=== PATIENT | male | born 1975 | race Caucasian/White ===

== ENCOUNTER 2021-05-18 18:36 | Emergency (ER) | payer OTHER, SELFPAY ==
--- NOTE | 2021-05-18 19:03 | DI.RAD.S_ITS ---
PROCEDURE: XR WRIST RT MIN 3V INDICATIONS: fall TECHNIQUE: 4 views of the wrist were acquired. COMPARISON: None. FINDINGS: Bones: Acute minimally displaced fractures involving both radial and ulnar styloids are seen. No other fracture or dislocation. No suspicious bony lesions. Scaphoid view: Scaphoid is grossly intact. Soft tissues: No suspicious soft tissue calcifications. IMPRESSION: Minimally displaced fractures involving both radial and ulnar styloids. Dictated by: Jeramie Santos M.D. on 05/18/2021 at 19:30 Approved by: Jeramie Santos M.D. on 05/18/2021 at 19:30
[2021-05-18 19:04] VITALS: BP 133/79; PULSE 88; RESP 17; TEMP 37.2; O2SAT 97; BMI 26.4
--- NOTE | 2021-05-18 22:43 | ED.UPPEXIN ---
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 He has some swelling and now bruising on the volar surface of the wrist. He is neurovascularly intact. He describes no other injuries fall. He was seen initially on [facility] and they did have a capacity to do x-rays. He had a single oxycodone and that has controlled his pain for the last number of hours. He describes no loss of consciousness, no recent fevers, cough, abdominal pain, vomiting, diarrhea, palpitations,, chest pain. He was able to easily stand up after the fall and is still not noticing any additional orthopedic complaints hours after the fall. Related Data Previous Rx's Medication Instructions Recorded oxycodone 5 mg tablet 5 mg PO TID PRN #6 tab 05/18/21 Allergies Allergy/AdvReac Type Severity Reaction Status Date / Time No Known Drug Allergies Allergy Unverified 05/18/21 14:42 Review of Systems Review of Systems Narrative: Remainder of complete review of systems is otherwise unremarkable except for that included in the HPI. Patient History Social History Smoking Status: Former smoker Smoking Status: Former smoker alcohol intake frequency: a few times a month Substance Use Type: marijuana Exam Initial Vital Signs Initial Vital Signs: Vital Signs Temperature 99 F 05/18/21 19:04 Pulse Rate 88 05/18/21 19:04 Respiratory Rate 17 05/18/21 19:04 Blood Pressure 133/79 05/18/21 19:04 Pulse Oximetry 97 05/18/21 19:04 General: Alert appropriate in no acute distress Respiratory: Able to speak in full sentences, no obvious respiratory distress Skin: No obvious rashes, warm and dry Neurologic: Grossly intact no obvious asymmetries or abnormalities Psych: appropriate insight and affect, cooperative Extremity: Right hand with some swelling moderate swelling to the right wrist limited range of motion neurovascularly intact ecchymosis developing over the volar side of the wrist. No injury to the elbow or shoulder. Course Orders Ordered: ED Orders 05/18/21 19:03 XR wrist RT min 3V Stat Vital Signs Vital signs: Vital Signs - 8 hr 05/18/21 19:04 Temperature 99 F Pulse Rate 88 Respiratory Rate 17 Blood Pressure 133/79 Pulse Oximetry 97 MDM - Extremity Injury (Upper) Imaging Data XR wrist: Radiologist's Impression: FINDINGS:? ? Bones:? Acute minimally displaced fractures involving both radial and ulnar styloids are seen.? No other fracture or dislocation.? No suspicious bony lesions.? ? Scaphoid view:? Scaphoid is grossly intact. ? Soft tissues:? No suspicious soft tissue calcifications.? ? IMPRESSION:? Minimally displaced fractures involving both radial and ulnar styloids. ? ? Dictated by: Jeramie Santos M.D. on 05/18/2021 at 19:30? ?? [facility] Narrative Medical decision making narrative: 46-year-old right-handed gentleman fell landing on his right wrist with minimally displaced fractures of both the ulnar and radial styloid. He is placed in volar splint. Will have him follow-up with Orthopedic surgery for definitive treatment. Brief discussion with Dr. Toledo this evening. She recommended splinting and follow-up in approximately a week after the swelling has had a chance to diminish. He has a small prescription of Percocet available to him and does not believe he needs any additional. When over anticipated course of symptoms in the next couple of days as well as length and type of treatment. Questions are answered and he is safe for home discharge Discharge Plan Departure Patient Disposition: Home Clinical Impression: Fracture of wrist Qualifiers: Encounter type: initial encounter Fracture type: closed Laterality: right Qualified Code(s): S62.101A - Fracture of unspecified carpal bone, right wrist, initial encounter for closed fracture Instructions: DI for Wrist Fracture Activity Restrictions/Additional Instructions: Thank you for coming in today. I am sorry today turned out to be such a long ordeal for you You did break your wrist, you very likely will heal nicely and not need any surgical intervention. Typically with wrist fracture such as this you are in a cast for 6 weeks. Using 400 mg of ibuprofen (2 jwyk-qwu-jqaxzxa pills) and 1 Tylenol every 6 hours can be very helpful in controlling pain. For severe pain, using 400 mg of ibuprofen and 1 of the pain pills given to you from the [facility] this afternoon. You need to follow-up with [facility], Dr Trisha Toledo next week for definitive treatment of the fracture. Phone number is [phone] If you have worsening symptoms, pain that continues to increase her is not able to be controlled with pain medications please return to the ER Prescriptions: No Action oxycodone 5 mg tablet 5 mg PO TID PRN (Reason: pain) Qty: 6 0RF Referrals: Lemuel Grimes MD [Primary Care Provider] -
[2021-05-18 23:24] VITALS: BP 124/90; PULSE 97; RESP 17; O2SAT 98
== END 2021-05-18 23:26 | disposition home or self-care (01) ==
PROVIDERS: Emergency Provider Emergency Medicine; Family Provider Nurse Practitioner; PCP Family Medicine
DX: S52.511A Displaced fracture of right radial styloid process, initial encounter for closed fracture (principal); S52.611A Displaced fracture of right ulna styloid process, initial encounter for closed fracture; W13.2XXA Fall from, out of or through roof, initial encounter; Y99.0 Civilian activity done for income or pay
CPT/HCPCS: 73110; 99281; 99283

== ENCOUNTER 2021-05-25 05:52 | Day surgery (SDC) | payer OTHER, SELFPAY ==
[2021-05-25] VITALS (7 sets, daily range): BP systolic 133–153; BP diastolic 83–97; PULSE 81–97; RESP 12–16; TEMP 36.7–36.9; O2SAT 93–98; BMI 27.1
[2021-05-25 06:55] LABS: COVID19 -Nasal RAPID Negative (Negative)
[2021-05-25] MEDS: ACETAMINOPHEN 325 MG TABLET 975 MG PO (07:05)
[2021-05-25] MEDS: SCOPOLAMINE 1 PATCH TOP (07:06)
[2021-05-25] MEDS: GABAPENTIN 300 MG CAPSULE PO (07:06)
--- NOTE | 2021-05-25 07:25 | SUR.OPER ---
Supine on padded OR bed, head on pillow, left arm secured on padded arm boards at <90 degrees abduction, right arm on the handtable, legs uncrossed, safety belt at thigh, tape over blanket over lower legs.
--- NOTE | 2021-05-25 07:32 | PM.PREOP ---
Pre-operative Note COVID-19 Criteria for continued procedure: Possibility delay results in more complex future surgery or treatment, Increased loss of function, Continuing or worsening of significant or severe pain, Deterioration of the patient's condition or overall health, Delay expected to result in less-positive ultimate med/surg outcome and Non-surgical alternatives not available or appropriate per current SOC Interval Note History & Physical reviewed/Exam performed by Physician: Yes Changes to H&P: No
--- NOTE | 2021-05-25 07:53 | SUR.PREOP ---
Block start time [0737] . Monitoring initiated and maintained throughout procedure. Oxygen and medications available per anesthesiologist instructions. time out by dr. gonzalez at 0741. injection time 0743 . Patient remained stable throughout procedure, no adverse reactions noted. Block end time 0745. see flow sheet for vs. ].
--- NOTE | 2021-05-25 07:59 | PM.PROC.1 ---
Procedures Date/Time Date of procedure: 05/25/21 Time of procedure: 07:43 Nerve Block Time out performed: Yes Local anesthetic used: bupivacaine 0.5% Location of anesthetic used: RIGHT Nerve blocks: brachial plexus (Axillary) Procedure successful: Yes Patient tolerated procedure: well and no complications Complications: none Additional comments: Axillary nerve block performed for post-op pain control at surgeon request. Patient was positioned with IV, O2, monitors and rescue meds available. Prepped and timeout performed. Target identified with continuous ultrasound guidance. 30mL of bupivicaine 0.5% was injected perineurally with intermittent aspiration and injection. No blood, no paresthesias, no acute complications. Ultrasound pic attained.
[2021-05-25] MEDS: CEFAZOLIN 2 GM/20 ML SYRINGE IV (08:00)
[2021-05-25] MEDS: BUPIVACAINE 0.5% W/ EPI (PF) 30 ML VIAL INJ (09:57)
--- NOTE | 2021-05-25 10:15 | SUR.PHASEI ---
OK for patient to take taxi to the [facility] per Dr Garg. Patient's will pick him up at the [facility] terminal on [place].
--- NOTE | 2021-05-25 10:28 | P.OP_ITS ---
Operative Date/Time/Diagnoses Date of procedure: 05/25/21 Time of procedure: 10:28 Pre-op diagnosis: Right perilunate dislocation with right radius and ulna fracture Post-op diagnosis: same Procedure & Clinicians Procedure: Open reduction of a volar perilunate dislocation, carpal tunnel release, repair of the scapholunate ligament, repair of the lunate triquetral ligament close reduction without manipulation radial styloid fracture, closed reduction without manipulation of the ulnar styloid fracture Same procedure as scheduled: Yes Indications: Right perilunate dislocation Surgeon: Dayron Garg Click Yes if Unassisted: Yes Anesthesia Type: General and Peripheral nerve block Operative Notes Findings: Dislocation of the lunate volarly into the carpal tunnel. Avulsion Fracture fragment involving the lunate as well as the triquetrum. No sign of any scaphoid fracture. Complete rupture of the dorsal and volar ligaments of the scapholunate as well as the lunate triquetrum. Hematoma and swelling in the carpal tunnel. No sign of any tendon injury. No sign of any external damage to the median nerve or ulnar nerve. Closure Type: primary Applied: implant(s) (Three Arthrex anchors as well as labral tape, 3x0.54 K- wires.) Estimated Blood Loss (mL): 10 Tourniquet time (min): 110 Procedure in detail: On date of service, patient was met in the holding area where his operative site was signed and witnessed by the OR staff. The surgery is once again discussed with the patient in remaining questions or concerns he had were answered fully. Patient was taken back to the operating theater and placed on the operating table in a supine position. Great care was taken to ensure that all bony prominences were appropriately padded. A well-padded tourniquet was placed up along the upper extremity. Time-out was performed verifying patient's name, procedure, and operative site. The limb was prepped and draped in the normal sterile fashion. An Esmarch was used to exsanguinate the limb the tourniquet was turned up to 250 mm of mercury. We started with a extensile carpal tunnel incision. The incision was extended proximally across the wrist. Fifteen blade was used to incise the skin and fascial tissue. Electrocautery used to achieve hemostasis. Sharp dissection was continued until the carpal ligament was visualized. Curved hemostat was placed underneath the carpal ligament and the carpal ligament was excised performing a decompression of the carpal tunnel. There was quite a bit a hematoma in the carpal tunnel. This was irrigated. The flexor tendon and the median nerve were retracted radially. This gave us good visualization of the floor of the carpal tunnel. The lunate was sitting in the carpal tunnel most likely through the space of Poier[place]. There was a small avulsion fragment associated with the lunate but the majority of the lunate was free of any fracture. Next, reduction of the lunate was performed. We were able to push the lunate back into the radial carpal joint reducing it on to the radius and the capitate. At this point, moist Ray-Rocío was placed into the volar wound and we turned our attention to the radial aspect of the wrist. Longitudinal incision was made. The incision was ulnar to the Joel's tubercle. It was centered over the radiocarpal joint. Fifteen blade was used to incise through skin and fascial tissue. Sharp dissection was continued with a 15 blade until the extensor mechanism was identified. Branches of the superficial radial nerve were identified and protected as well as branches coming off ulnarly. The 2nd, 3rd, and 4th extensor compartments were opened. T his allowed us to retract the extensor tendons. There was also signs of hematoma radially which was irrigated. Next, the radiocarpal joint was opened preserving the carpal ligaments. There was some damage to the extrinsic ligament from the dislocation. There was a complete rupture to the scapholunate ligament as well as the lunate triquetral ligament. But no sign of any radiocarpal arthritic process or obvious articular damage. Patient had a small fracture fragment involving the tip of the radial styloid. K-wire was placed in to the scaphoid and 1 into the lunate and the scapholunate interval was reduced. There was quite a bit of flexion of the scaphoid which was reduced as well as extension of the lunate. These 2 K-wires were then held together to close down any diastasis. Another 2 K-wire was placed between the scaphoid and the lunate to help maintain reduction. Next, 3 guidewires were placed 1 in the lunate and 1 in the scaphoid by the scapholunate interval and then 1 in the triquetrum. C-arm used to verify reduction of the scapholunate interval as well as guidewire positioning. Once we were satisfied with the positioning cannulated drill was used to drill over the 3 guidewires. The bony hole tunnels were then copiously irrigated removing any remaining tissue. suture tape was tenodesed into the 1st hole in the scaphoid. Then under tension this was then placed into the 2nd hole into the lunate going across the scapholunate interval providing solid repair of the scapholunate interval. Next the suture material was placed between the lunate and triquetrum helping to reduce the interval as well as repair the dorsal ligament. C-arm was brought in to verify maintenance of reduction. Another K- wire was placed between the triquetrum and the lunate. 4-0 Ethibond was used to do a direct repair of the scapholunate ligament. So we had the direct repair as well as the anchor with suture material to reinforce the scapholunate ligament. On the dorsal aspect just had the FiberTape to address the dorsal aspect of the lunate triquetral ligament. We then turned our attention back volarly. We were able to do a direct repair of the volar lunate triquetral ligament. There was good healthy ligament tissue still available. A 2-0 Ethibond was used to repair the scapholunate ligament volarly and this provided a aguirre repair to the volar aspect. Next the wound was irrigated and then closed in a layered fashion volarly. We then turned our attention back to the dorsal wound. The dorsal aspect was irrigated and then final C-arm views were obtained veri fying pin position as well as the reduction of the scapholunate as well as lunate triquetrum. Were able to also verify that we corrected any excess flexion or extension of the carpal bones. Once we were satisfied with the repair and overall reduction, the wound was copiously irrigated and then closed in a layered fashion. 2-0 Ethibond was used to repair the dorsal capsule repairing the ligament this spur splitting approach. 3-0 Vicryl was then used to repair the extensor mechanism over the 2nd, 3rd, and 4th extensor compartments. Rest of the wound was closed in layered fashion. Patient's hand and arm was cleaned dried and dressed. Patient was placed into a splint and taken to the PACU in stable condition. Complications: none Post-operative Condition: stable Disposition: PACU Plan for aftercare: Patient will be discharged home. Patient only be immobilized for 6 weeks. At 2 weeks patient can come out of his splint to be placed into a short-arm cast. After 6 weeks patient will go into a removable brace. At 6 weeks patient will begin hand therapy to work on range of motion. K-wires will be removed at the 6 week follow-up.
--- NOTE | 2021-05-25 10:54 | SUR.PHASEII ---
patient [place] [address] to [facility].
--- NOTE | 2021-05-25 10:55 | SUR.PHASEII ---
Sling placed after getting dressed.
== END 2021-05-25 10:56 | disposition home or self-care (01) ==
PROVIDERS: Family Provider Nurse Practitioner; PCP Physician Assistant; Referring Provider Orthopaedic Surgery; Visit Provider Orthopaedic Surgery
PROC: (CPT 25695; principal; 2021-05-25 07:45)
DX: S63.094A Other dislocation of right wrist and hand, initial encounter (principal); W19.XXXA Unspecified fall, initial encounter; Z20.822 Contact with and (suspected) exposure to COVID-19
CPT/HCPCS: 25695; 25320; 64450; 87635; C1713; J0690; J1100; J1170; J1885; J2250; J2405; J2704

== ENCOUNTER → 2022-02-15 10:30 | Outpatient (CLI) | payer OTHER, SELFPAY ==
[2022-02-15 19:56] LABS: Alanine Aminotransferase 22 IU/L (<50); Albumin 4.6 g/dL (3.5-5.0); Albumin Globulin Ratio 1.5 (1.0-2.8); Alkaline Phosphatase 51 U/L (38-126); Aspartate Aminotransferase 21 IU/L (17-59); BUN Creatinine Ratio 14.1 (6-22); Blood Urea Nitrogen 13 mg/dL (9-20); Calcium 9.3 mg/dL (8.4-10.2); Carbon Dioxide 29 mmol/L (22-32); Chloride 101 mmol/L (98-107); Cholesterol 224 mg/dL (140-199); Estimated Glomerular Filt Rate > 60 mL/min (>60); Globulin 3.1 g/dL (1.7-4.1); Glucose 96 mg/dL (70-100); HDL Cholesterol 59 mg/dL (40-60); HEMOLYSIS < 15 (0-50); LDL Cholesterol Calculated 146 mg/dL (<100); Potassium 4.3 mmol/L (3.4-5.1); Sodium 139 mmol/L (137-145); Total Protein 7.7 g/dL (6.3-8.2); Triglycerides 94 mg/dL (35-150)
[2022-02-15 19:58] LABS: Add Manual Diff / Slide Review NO; Basophils Absolute Auto 100 /uL (0-100); Basophils Percent Auto 0.7 % (0-2); Eosinophils Absolute Auto 200 /uL (0-450); Eosinophils Percent Auto 1.9 % (2-4); Hematocrit 43.1 % (41-53); Hemoglobin 15.1 g/dL (13.5-17.5); Lymphocytes Absolute Auto 2000 /uL (1100-4500); Lymphocytes Percent Auto 25.8 % (25-40); Mean Corpuscular HGB Conc 35.1 % (30-36); Mean Corpuscular Hemoglobin 29.7 PG (26-34); Mean Corpuscular Volume 84.6 fL (80-100); Monocytes Absolute Auto 800 /uL (0-900); Monocytes Percent Auto 9.5 % (3-14); Neutrophils Absolute Auto 4900 /uL (1500-7000); Neutrophils Percent Auto 62.1 % (50-75); Platelet Count 195 X10^3/uL (150-400); Red Blood Cell Count 5.09 X10^6/uL (4.5-5.9); Red Cell Distribution Width 13.7 % (11.6-14.8); White Blood Cell Count 7.9 X10^3/uL (4.5-11.0)
[2022-02-15 20:26] LABS: Prostate Specific Antigen 1.83 ng/mL (0.10-4.00)
== END ==
PROVIDERS: PCP Physician Assistant; Visit Provider Physician Assistant
DX: Z12.5 Encounter for screening for malignant neoplasm of prostate (principal); Z13.220 Encounter for screening for lipoid disorders; R35.1 Nocturia
CPT/HCPCS: 80053; 80061; 84153; 85025

== ENCOUNTER → 2022-04-23 10:10 | Outpatient (CLI) | payer OTHER, SELFPAY ==
[2022-04-23 21:45] LABS: COVID19 - ORCAS (NP or Nasal) Negative (Negative)
== END ==
PROVIDERS: Family Medicine; PCP Physician Assistant; Visit Provider Surgery
DX: Z20.822 Contact with and (suspected) exposure to COVID-19 (principal)
CPT/HCPCS: U0003

== ENCOUNTER 2022-04-24 13:35 | Day surgery (SDC) | payer OTHER, SELFPAY ==
[2022-04-24 14:07] VITALS: BMI 25.0
[2022-04-24 14:10] VITALS: BP 124/77; PULSE 69; RESP 18; TEMP 36.6; O2SAT 99
[2022-04-24] MEDS: LACTATED RINGERS 1,000 ML 42 ML IV (14:23)
--- NOTE | 2022-04-24 15:38 | P.HP_ITS ---
History of Present Illness History of Present Illness Date Patient Seen: 04/24/22 Time Patient Seen: 15:38 Chief complaint: SDC Narrative: The patient presents for colorectal screening. They have never had any previous examination for such. Family history of colon cancer in mother. On further history denies any recent gastrointestinal symptoms. No nausea, vomiting, abdominal pain, loss of appetite, unexplained weight loss, change in bowel habits, or blood per rectum. Patient History Family & Social History Social History: household members family Tobacco & Substance use: Smoking Status Former smoker alcohol intake current alcohol intake frequency a few times a month Substance Use Type marijuana Meds Home Medications and Allergies Home Medications Medication Instructions Recorded Confirmed Type sodium,potassium,mag sulfates 17.5 See Rx Instructions PO .COMPLEX 04/12/22 04/24/22 Rx gram-3.13 gram-1.6 gram oral soln #354 mL (Suprep Bowel Prep Kit) Allergies Allergy/AdvReac Type Severity Reaction Status Date / Time No Known Drug Allergies Allergy Verified 04/24/22 14:06 Exam Vital Signs (past 8 hours): - 04/24/22 14:10 Temperature 97.8 F Pulse Rate 69 Respiratory Rate 18 Blood Pressure 124/77 Pulse Oximetry 99 Oxygen Delivery Method Room Air Oxygen Delivery Method Room Air Narrative Exam Narrative: General adult male alert oriented no acute distress Assessment & Plan Assessment & Plan narrative: The patient requires colorectal screening and colonoscopy is recommended. Technical details were discussed. Risks, benefits, alternatives explained. Risks including but not limited to myocardial infarction, aspiration, bleeding, pain, missed lesion, incomplete examination, need for further radiographic studies, colonic perforation, and need for major abdominal surgery were discussed. All questions were answered to their satisfaction, and they are in agreement with this plan. Time Spent With Patient Critical Care time: I spent a total of [] minutes of critical care time on this patient's care toda y; this time is exclusive of procedural time.
--- NOTE | 2022-04-24 15:39 | PM.OP.COLON ---
Operative Date/Time/Diagnoses Date of procedure: 04/24/22 Time of procedure: 15:39 Pre-op diagnosis: Colorectal screening Post-op diagnosis: same Procedure & Clinicians Study performed: Colonoscopy Same procedure as scheduled: Yes Indications: Colorectal screening Surgeon: Ta Sánchez Procedure Notes Procedure in detail: The history and physical was performed/updated and the patient is ASA class is 1. The procedure was discussed in detail with the patient. Potential risks complications including infection, bleeding, missed diagnosis, perforation, need for surgery, and were explained. Their questions were answered and informed consent was obtained. Patient was brought to the procedure room and placed standard monitoring equipment. The patient's vital signs were monitored continuously throughout the entire procedure. Prior to starting time-out was performed. The patient was placed in the left lateral recumbent position. Procedural sedation was administered by anesthesia. Examination began with a thorough inspection of the perianal area there was no evidence of fissures, fistulae, external hemorrhoids or cutaneous malignancy. The colonoscopy scope was then placed into the anal canal and was advanced to the cecum, which was identified by the ileocecal valve, the appendiceal orifice and the confluence of the taenia. The scope was then slowly withdrawn examining colon thoroughly in all directions, irrigating it of any residual stool. FINDINGS 1. No masses polyps or inflammation 2. Sigmoid extensive diverticulosis The patient tolerated the procedure well. They will be discharged once criteria are met. The prep was of good/excellent quality. The withdrawl time was 6 minutes. Impression: Normal colonoscopy Post-procedure Recommendations: Colonoscopy in 10 years and High fiber diet Disposition: same day surgery
[2022-04-24 16:09] VITALS: BP 117/71; PULSE 77; RESP 12; TEMP 36.2; O2SAT 98
[2022-04-24 16:15] VITALS: BP 105/77; PULSE 61; RESP 16; TEMP 36.2; O2SAT 99
[2022-04-24 16:20] VITALS: BP 117/79; PULSE 68; RESP 18; TEMP 36.3; O2SAT 100
[2022-04-24 16:35] VITALS: BP 117/68; PULSE 68; RESP 18; O2SAT 99
--- NOTE | 2022-04-24 16:44 | SUR.PHASEII ---
1644: Pt A&Ox4, denies any distress, abd soft, and ready to discharge home. Discharge instructions reviewed with pt and time allowed for questions. IV DC'd intact, pt left unit with all personal belongings and written instructions. Friend to transport pt home.
== END 2022-04-24 16:44 | disposition home or self-care (01) ==
PROVIDERS: PCP Physician Assistant; Referring Provider Surgery; Visit Provider Surgery
PROC: 0DJD8ZZ Inspection of Lower Intestinal Tract, Via Natural or Artificial Opening Endoscopic (ICD-10-PCS; CPT 45378; principal; 2022-04-24 14:45)
DX: Z12.11 Encounter for screening for malignant neoplasm of colon (principal); K57.30 Diverticulosis of large intestine without perforation or abscess without bleeding
CPT/HCPCS: 45378; C9803; J2704

== ENCOUNTER 2023-03-01 10:42 | Emergency (ER) | payer OTHER, SELFPAY ==
[2023-03-01 10:52] VITALS: BP 153/90; PULSE 85; RESP 14; TEMP 36.3; O2SAT 99; BMI 23.6
--- NOTE | 2023-03-01 11:23 | DI.RAD.S_ITS ---
PROCEDURE: XR CERVICAL SPINE 2V OR 3V INDICATIONS: neck pain, R>L, worse around C7 TECHNIQUE: 3 view(s) of the cervical spine were acquired. COMPARISON: None. FINDINGS: Bones: No fractures or dislocations to the T1 level. The lateral masses of C1 appear intact on the odontoid view. No suspicious bony lesions. There is trace anterolisthesis of C4 on C5. Moderate disc space narrowing at C5-6, C6-7. Soft tissues: No prevertebral soft tissue swelling. IMPRESSION: Degenerative changes most severe at C5-6, C6-7. No visualized acute fracture or dislocation. However, if clinical concern and/or pain persist, short interval imaging followup in 7-10 days is recommended, as occult injury cannot be definitively excluded. Dictated by: Tootie Ang M.D. on 03/01/2023 at 12:53 Approved by: Tootie Ang M.D. on 03/01/2023 at 12:54
--- NOTE | 2023-03-01 11:38 | ED.PSYCH ---
HPI - Psych <Meron Lynn PA-C - Last Filed: 03/01/23 14:35> General Chief Complaint: Psychiatric Symptoms Stated Complaint: neck pain/ anxiety/panic attack/ SI Time Seen by Provider: 03/01/23 11:00 Source: patient Mode of arrival: Ambulatory History of Present Illness HPI Narrative: Patient is a 39-year-old male who presents with concerns for depression and panic attack. He reports a past history of chronic neck pain after a workplace injury for which he has primarily used marijuana to manage the pain. He also has a history of drinking approximately 4 beers daily. He stopped using alcohol or marijuana 33 days ago. His partner and mother of his child moved out of his home 2 weeks ago and into the house next door which is on by family member. They are currently both caring for the child but do not have any formal agreement in place. He is having considerable symptoms of depression and anxiety. He is having difficulty with sleeping;I can not turn off my brain. This morning he awoke and had a panic attack. He felt like he could not breathe and he had chest pressure. He took a muscle relaxer that he has been prescribed for his neck pain in order to try and relax. In the past, he took benzodiazepines for anxiety and went through significant withdrawal after discontinuing these. Around the same time, he called the suicide hotline because he was feeling suicidal but did not have a plan. He presents to the ED today because he feels like I can not do this again tomorrow. He reports having to mental health counselors, both available over telehealth. He has an appointment later today with 1 of them. He does not have a psychiatrist. He is not currently on any psychoactive medications. He says he previously address this with his primary care Bambi Wade PA-C who stated that he needed to be clean and sober prior to starting any medications. Related Data Previous Rx's Medication Instructions Recorded cyclobenzaprine 10 mg tablet 10 mg PO BEDTIME painful muscle 02/25/23 spasms #20 tabs escitalopram oxalate 20 mg tablet 20 mg PO DAILY #30 tabs 03/01/23 trazodone 50 mg tablet 50 mg PO BEDTIME PRN insomnia #10 03/01/23 tabs Allergies Allergy/AdvReac Type Severity Reaction Status Date / Time No Known Drug Allergies Allergy Verified 03/01/23 10:57 Review of Systems <Meron Lynn PA-C - Last Filed: 03/01/23 14:35> Review of Systems ROS Unobtainable: All systems reviewed & are unremarkable except as noted in HPI and below Patient History <Meron Lynn PA-C - Last Filed: 03/01/23 14:35> Social History household members: family Smoking Status: Former smoker alcohol intake: current Smoking Status: Former smoker alcohol intake frequency: other Substance Use Type: former substance user Exam <Meron Lynn PA-C - Last Filed: 03/01/23 14:35> Narrative Exam Narrative: GENERAL: 47 year old patient appears stated age. Well-developed patient, appears fatigued, anxious. Patient has good insight into his current situation. Patient is able to identify stressors as well as supports. NEURO: AOx3. HEAD: Atraumatic. Normocephalic. EYES: Pupils equal round and reactive. Extraocular motions intact. No scleral icterus. No injection or drainage. ENT: Nose without bleeding or purulent drainage. Airway patent. RESPIRATORY: No distress or increased work of breathing EXTREMITIES: No edema or joint tenderness. SPINE: Focal tenderness over the base of the right neck around C7. No midline tenderness, deformity or step-offs. SKIN: No rash or erythema of visible areas Initial Vital Signs Initial Vital Signs: Vital Signs Temperature 97.4 F L 03/01/23 10:52 Pulse Rate 85 03/01/23 10:52 Respiratory Rate 14 03/01/23 10:52 Blood Pressure 153/90 H 03/01/23 10:52 Pulse Oximetry 99 03/01/23 10:52 Oxygen Delivery Method Room Air 03/01/23 10:52 <Lemuel Lindsey DO - Last Filed: 03/01/23 15:00> Initial Vital Signs Initial Vital Signs: Vital Signs Temperature 97.4 F L 03/01/23 10:52 Pulse Rate 85 03/01/23 10:52 Respiratory Rate 14 03/01/23 10:52 Blood Pressure 153/90 H 03/01/23 10:52 Pulse Oximetry 99 03/01/23 10:52 Oxygen Delivery Method Room Air 03/01/23 10:52 Course <Meron Lynn PA-C - Last Filed: 03/01/23 14:35> Orders Ordered: ED Orders 03/01/23 10:57 [place] [facility] Stat 03/01/23 11:23 XR cervical spine 2V or 3V Stat Discontinued Medications Ketorolac Tromethamine (Ketorolac 30 Mg/Ml Vial) 30 mg IM NOW ONE Stop: 03/01/23 11:24 Last Admin: 03/01/23 11:43 Dose: 30 mg Documented By: KF Vital Signs Vital signs: Vital Signs - 8 hr 03/01/23 10:52 03/01/23 12:53 Temperature 97.4 F L Pulse Rate 85 72 Respiratory Rate 14 18 Blood Pressure 153/90 H 128/78 Pulse Oximetry 99 99 Oxygen Delivery Method Room Air Room Air <Lemuel Lindsey DO - Last Filed: 03/01/23 15:00> Orders Ordered: ED Orders 03/01/23 10:57 [place] to [facility] Stat 03/01/23 11:23 XR cervical spine 2V or 3V Stat Discontinued Medications Ketorolac Tromethamine (Ketorolac 30 Mg/Ml Vial) 30 mg IM NOW ONE Stop: 03/01/23 11:24 Last Admin: 03/01/23 11:43 Dose: 30 mg Documented By: KF Vital Signs Vital signs: Vital Signs - 8 hr 03/01/23 10:52 03/01/23 12:53 Temperature 97.4 F L Pulse Rate 85 72 Respiratory Rate 14 18 Blood Pressure 153/90 H 128/78 Pulse Oximetry 99 99 Oxygen Delivery Method Room Air Room Air MDM - Psych <Meron Lynn PA-C - Last Filed: 03/01/23 14:35> Imaging Data xr cspine: Radiologist's Impression: PROCEDURE: XR CERVICAL SPINE 2V OR 3V INDICATIONS: neck pain, R>L, worse around C7 TECHNIQUE: 3 view(s) of the cervical spine were acquired. COMPARISON: None. FINDINGS: Bones: No fractures or dislocations to the T1 level. The lateral masses of C1 appear intact on the odontoid view. No suspicious bony lesions. There is trace anterolisthesis of C4 on C5. Moderate disc space narrowing at C5-6, C6-7. Soft tissues: No prevertebral soft tissue swelling. IMPRESSION: Degenerative changes most severe at C5-6, C6-7. No visualized acute fracture or dislocation. However, if clinical concern and/or pain persist, short interval imaging followup in 7-10 days is recommended, as occult injury cannot be definitively excluded. Dictated by: Tootie Ang M.D. on 03/01/2023 at 12:53 Approved by: Tootie Ang M.D. on 03/01/2023 at 12:54 MDM Narrative Medical decision making narrative: Patient is going through a period of depression, anxiety and panic attacks. He recently stopped using alcohol and marijuana and is feeling the effects of this. He has had significant emotional stressors. He shows good insight into his current situation as well as already has 2 different counselors he is seeing. He knows how to access support such as the suicide hotline. He is not currently feeling suicidal, is several protective factors such as his left for his son and desire to be a good parent to him. He is interested in starting an SSRI today and notes that his sister has been successful on Lexapro. He also requests something for sleep. We will start escitalopram today along with a short prescription for trazodone for sleep. Advised precautions and encourage patient to set up follow up with PCP in 2 weeks to reassess. X-ray of C-spine done today as patient has not had 1 and the last time he was at his PCP's office there was no x-ray tech available. He is given a Toradol shot in the ER with minimal improvement in his pain. Discussed I do not have a lot else to offer him for his neck pain day but he can discuss a referral to a specialist with his PCP. Patient's symptoms improved over duration of stay with above-stated therapies. Findings and discharge diagnosis discussed with patient/family followed by verbalization of understanding Return precautions discussed with patient/family whom verbalize understanding of diagnosis and plan Discharge Plan Departure Patient Disposition: Home Clinical Impression: Anxiety, Chronic neck pain Depression Qualifiers: Depression Type: major depressive disorder Major depression recurrence: unspecified whether recurrent Active/Remission status: currently active Major depression episode severity: severe Psychotic features: without psychotic features Qualified Code(s): F32.2 - Major depressive disorder, single episode, severe without psychotic features Instructions: DI for Panic Disorder, DI for Suicidal Ideation-Adult, DI for Chronic Neck Pain Activity Restrictions/Additional Instructions: *You have been diagnosed with depression, anxiety, chronic neck pain. As we discussed, there isn't a lot to do right now for your neck pain. You can use ice, heat, ibuprofen 600 mg every 6 hours for symptomatic relief. We got an x-ray today, the read is still pending, but this can help guide further management. I would follow up with your primary care and discuss a referral to a spine or pain specialist for further treatment of your neck pain. In terms of her depression and anxiety, I would suggest starting the escitalopram that I have prescribed. I also prescribed trazodone which can help with sleep. Ideally, as the escitalopram starts to help and you were using all of your coping mechanisms, you will not need to use a sleep aid. Please be very careful not to combine the sleep aid with other medications and make you sleepy. Stop using the melatonin and the cyclobenzaprine muscle relaxer while you are using the trazodone. Please follow-up with your primary care in 2 weeks to assess how you are doing on the new medications. If you can not tolerate the side effects or having worsening depression or thoughts of suicide, please contact your primary care sooner or come back to the ER. If these medications are not helping your symptoms, a referral to a psychiatrist may be beneficial, but you can follow up with your primary care for this. *What to do: *Please continue to take your regular medications as directed. [x] New medication prescriptions sent to your pharmacy: [facility] [ ] New medication written as a paper prescription [ ] No new medications given *Please follow up with your primary care provider in 2-3 days, call for an appointment. Let them know you were seen in the Emergency Department and that we ask that you be seen in follow up. We will electronically transmit a record of today's note if your PCP is in our system *If you do not have a primary care provider please contact the [facility] Resource line at [phone]. They will ask some questions about your medical history and help get you set up with a doctor in the community. *Return to Emergency Department if you should have any new, worsening or concerning symptoms, such as [fever greater than 101 F, shaking chills, worsening pain, persistent vomiting or other concerning symptoms]. Prescriptions: New escitalopram oxalate 20 mg tablet 20 mg PO DAILY Qty: 30 1RF Rx Instructions: Take 0.5 tablet daily x 7 days, then increase to 1 tablet daily. trazodone 50 mg tablet 50 mg PO BEDTIME PRN (Reason: insomnia) Qty: 10 0RF Rx Instructions: take 0.5-1 tablet as needed at bedtime for sleep No Action cyclobenzaprine 10 mg tablet 10 mg PO BEDTIME Qty: 20 0RF Referrals: Bambi Wade PA-C [Primary Care Provider] - Stand Alone Forms: Patient Portal/API ED Sign-out <Lemuel Lindsey DO - Last Filed: 03/01/23 15:00> [facility]: Dr Lindsey Co-Sign Statement: I was available for consultation during this patient's emergency department visit. This chart is signed by myself for administrative purposes only. I did not have direct contact with this patient during this visit. They were seen independently by the APC.
[2023-03-01] MEDS: KETOROLAC 30 MG/ML VIAL IM (11:43)
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
[2023-03-01 12:53] VITALS: BP 128/78; PULSE 72; RESP 18; O2SAT 99
== END 2023-03-01 12:54 | disposition home or self-care (01) ==
PROVIDERS: Emergency Provider Physician Assistant; PCP Physician Assistant
DX: F32.2 Major depressive disorder, single episode, severe without psychotic features (principal); F41.9 Anxiety disorder, unspecified; G89.29 Other chronic pain; M54.2 Cervicalgia
CPT/HCPCS: 72040; 96372; 99283; 99284; J1885